=== PATIENT | female | born 1945 | race American Indian/Alaskan Native ===

== ENCOUNTER 2017-03-01 05:47 | Day surgery (SDC) | payer MEDICARE, BC ==
[2016-12-22 11:20] VITALS: BMI 23.4
[2017-03-01] MEDS ORDERED: Povidone Iodine 5% Spr TP ONE (07:28)
[2017-03-01] MEDS ORDERED: Iohexol 240 (50 ml) ONE (07:29)
[2017-03-01] MEDS ORDERED: cefTRIAXone IV 1 gm in Dextros 50 ML IVPB ONE (07:29)
[2017-03-01] MEDS ORDERED: Propofol 10 mg/ml Inj (20 ML) ONE (07:44)
[2017-03-01] MEDS ORDERED: Midazolam 2 MG/2 ML VIAL ONE (07:44)
[2017-03-01] MEDS ORDERED: Lidocaine Hydrochloride 5 ML INJ ONE (07:45)
[2017-03-01] MEDS ORDERED: Phenylephrine 10 mg/ml Inj ONE (07:58)
[2017-03-01] MEDS ORDERED: Lactated Ringer's 1,000 ML IV ONE ×2 (08:15→09:00)
[2017-03-01] MEDS ORDERED: ePHEDrine 50 mg/ml Inj ONE (08:37)
[2017-03-01] MEDS ORDERED: HYDROmorphone 0.5 mg/0.5 ml ISec IVP PRN (08:49)
--- NOTE | 2017-03-01 09:15 | RAD ---
PROCEDURE: Intraoperative Fluoroscopy. HISTORY: RIGHT HYDRONEPHROSIS FINDINGS: Fluoroscopic assistance was provided for bilateral retrograde urography and right ureteral stent deployment. Please refer to the was utilized with a cumulative DLP dose of 0.80949 mGym2.
--- NOTE | 2017-03-01 09:16 | RAD ---
HISTORY: RIGHT HYDRONEPHROSIS COMPARISON: No prior. FINDINGS: BOWEL: Normal. No obstruction. No gross free air. Moderate fecal loading seen throughout the majority of large bowel. BONES: Normal. OTHER FINDINGS: No definite abnormal internal calcifications. IMPRESSION: Nonobstructive bowel gas pattern. No gross free intraperitoneal gas appreciable.
--- NOTE | 2017-03-01 09:32 | PCM.SURG1 ---
Surgeon's Initial Post Op Note - Surgeon's Notes Surgeon: denae purcell Retail Advertising Executive: none Type of Anesthesia: General Mask Pre-Operative Diagnosis: Hydonephrosis Operative Findings: R hydornephrosis. cystitis. possible non-filling of lower pole of L kidney Post-Operative Diagnosis: same Operation Performed: cysto. bilat rtg pyelogram. r ureteroscopy. stent insertion. EUA Specimen/Specimens Removed: urine Estimated Blood Loss: EBL {In ML}: 0 Blood Products Given: N/A Post-Op Condition: Good Date of Surgery/Procedure: 03/01/17 Time of Surgery/Procedure: 09:32
[2017-03-01 11:46] VITALS: BP 124/65; PULSE 65; RESP 16; TEMP 97.6; O2SAT 100
--- NOTE | 2017-03-05 07:47 | OP ---
PROCEDURE DATE: 03/01/2017 PREOPERATIVE DIAGNOSIS: Right hydronephrosis. POSTOPERATIVE DIAGNOSES: Right hydronephrosis. Cystitis. PROCEDURE: Cystoscopy. Bilateral retrograde pyelogram. Right ureteroscopy. Insertion of right ureteral stent. Exam under anesthesia. Procedure was formed under video endoscopic control as well as also under fluoroscopic control. FINDINGS. There was noted to be mild right hydronephrosis involving the kidney collecting system and the upper ureter. There was no point of obstruction. There was no stone or lesions within the right ureter. Further findings included an abnormal left renal collecting system. There was mild fullness of the left upper pole collecting system. Exactly the only collecting system seen was the left upper pole. 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 There was no other left ureteral orifice identified. There was no evidence for obstruction within the left ureter which was viewed in its entirety. There was no filling defect. DESCRIPTION OF PROCEDURE: Procedure as follows. The patient was placed in lithotomy position. The genitalia prepped and draped sterilely. Anesthesia was applied by the anesthesiologist. Procedure was performed under video endoscopic control as well as under fluoroscopic control. A 22-Bangladeshi cystoscope sheath was introduced with the obturator. Urine was sent for bacteriologic examination. The urethra and bladder were inspected with 30-degree and 70-degree lenses. FINDINGS: The urethral caliber was normal. There was no bladder tumor. There was no bladder stone. There was slight inflammation of bladder mucosa. The trigone was normal. The ureteral orifices were normal in position and shape. There was one ureteral orifice on each side. Retrograde pyelogram demonstrated no evidence of filling defect within the ureters or collecting system. There was fullness of the right proximal ureter and collecting system. There was a small than normal left upper pole collecting system, without evidence of filling of the lower pole collecting system of a suggested, and anticipated, of left renal collecting system. A 0.035-inch guidewire was inserted into the right ureter and passed up to the level of the kidney. A 7-Bangladeshi mini-rigid ureteroscope was passed using a second wire and through it. The guidewire was inserted into the kidney adjacent to the first wire. There was no evidence of lesions within the ureter. There was no evidence of obstruction. There were no stones or tumors within the collecting systems. The ureteroscope was passed up to the level of the kidney. The ureteroscope was removed under direct vision. Again, ureteroscopy did not demonstrate stone or tumor or obstruction. A 6-Bangladeshi multilength stent was inserted over the remaining guidewire. Proper stent position was confirmed with fluoroscopy and endoscopy. A distal suture was left to exit per urethra. Exam under anesthesia was performed. There was no abnormal pelvic mass, fixation or induration. The patient tolerated the procedure without complication. Rose Berkowitz MD
== END 2017-03-01 11:51 ==
LOC: C.SDS 05:47
PROVIDERS: ATTEND Urology
DX: N13.30 Unspecified hydronephrosis (principal); N30.90 Cystitis, unspecified without hematuria
CPT/HCPCS: 52332; 52351; 74000; 87086; 87181; C1758; C1769; C2617; J0696; J7120